=== PATIENT | female | born 1945 | race African-American/Black ===

== ENCOUNTER 2018-11-24 18:08 | Emergency (ER) | payer OTHER, MEDICAID ==
[~2018-11-24] VITALS: Ht 162.6 cm; Wt 62.1 kg
[~2018-11-24 18:08] MED LIST: ALB2T; ESOM20CA; MOME220A3
[2018-11-24] MEDS ORDERED: ONDANSETRON ODT 4 MG TAB PO ONE (19:15)
[2018-11-24] MEDS ORDERED: HYDROcodone-ACET 10/325MG TAB PO ONE (19:15)
[2018-11-24 19:36] LABS: Alanine Aminotransferase 27 U/L (13-56); Albumin 3.8 g/dL (3.4-5.0); Anion Gap 8 (5-15); Aspartate Aminotransferase 18 U/L (15-37); BUN/Creatinine Ratio 15.1; Blood Urea Nitrogen 13 mg/dL (7-18); Calcium 9.1 mg/dL (8.5-10.1); Carbon Dioxide 26 mmol/L (21-32); Chloride 104 mmol/L (98-107); GFR African American > 60 mL/min; GFR Non-African American > 60 mL/min; Glucose 91 mg/dL (74-106); Magnesium 2.4 mg/dL (1.6-2.6); Potassium 3.8 mmol/L (3.5-5.1); Sodium 138 mmol/L (136-145)
[2018-11-24 19:41] LABS: Alkaline Phosphatase 110 U/L (45-117); Bilirubin, Total 0.2 mg/dL (0.2-1.0)
[2018-11-24 19:50] LABS: Basophils # (auto) 0 uL; Basophils % (auto) 0.5 % (0.0-2.0); Eosinophils # (auto) 0.1 uL; Eosinophils % (auto) 2.4 % (0.0-7.0); Hematocrit 42.3 % (36.0-46.0); Lymphocytes # (auto) 2.1 uL; Lymphocytes % (auto) 41.1 % (10.0-50.0); Mean Corpuscular Hemoglobin 27.3 pg (28.0-32.0); Mean Corpuscular Volume 82.8 fL (80.0-100.0); Monocytes # (auto) 0.4 uL; Monocytes % (auto) 8.6 % (0.0-12.0); Neutrophils # (auto) 2.4 uL; Neutrophils % (auto) 47.4 % (37.0-80.0); Nucleated Red Blood Cells % 0.1 %; Platelet Count (auto) 276 10^3/uL (140-450); Red Blood Cells 5.11 10^6/uL (4.0-5.20); Red Cell Distribution Width 15.4 % (11.8-14.3); White Blood Cell 5.1 10^3/uL (4.4-10.8)
[2018-11-24 21:07] VITALS: BP 145/71
== END 2018-11-24 21:09 | disposition home or self-care (01) ==
LOC: ER 18:08
DX: F41.1 Generalized anxiety disorder (principal); F43.0 Acute stress reaction; I48.91 Unspecified atrial fibrillation; J44.9 Chronic obstructive pulmonary disease, unspecified; K21.9 Gastro-esophageal reflux disease without esophagitis; Z87.891 Personal history of nicotine dependence; Z88.5 Allergy status to narcotic agent; Z88.1 Allergy status to other antibiotic agents; Z79.899 Other long term (current) drug therapy
CPT/HCPCS: 36415; 71046; 72128; 80053; 83735; 83880; 84484; 85025; 93005

== ENCOUNTER 2018-12-06 21:56 | Emergency (ER) | payer MEDICAID, OTHER ==
[~2018-12-06] VITALS: Ht 162.6 cm; Wt 63.5 kg
[2018-12-07 01:57] VITALS: BP 156/71
== END 2018-12-07 04:36 | disposition left against medical advice (07) ==
LOC: ER 21:56
DX: F41.9 Anxiety disorder, unspecified (principal); Z53.21 Procedure and treatment not carried out due to patient leaving prior to being seen by health care provider
CPT/HCPCS: 93005

== ENCOUNTER 2019-02-10 14:02 | Emergency (ER) | payer OTHER, MEDICAID ==
[~2019-02-10] VITALS: Ht 162.6 cm; Wt 62.1 kg
[2019-02-10 14:17] VITALS: BP 110/64
== END 2019-02-10 15:13 | disposition home or self-care (01) ==
LOC: ER 14:04
DX: F41.9 Anxiety disorder, unspecified (principal); I48.91 Unspecified atrial fibrillation; J45.909 Unspecified asthma, uncomplicated; K21.9 Gastro-esophageal reflux disease without esophagitis

== ENCOUNTER → 2019-12-31 | Emergency (ER) | payer OTHER, MEDICAID ==
[~2019-12-31] VITALS: Ht 162.6 cm; Wt 68.0 kg
[~2019-12-31] MED LIST changes: -ALB2T; +ALB2T INH; +ALBUTEROL SULF 2.5 MG/0.5ML(0.5%) NEB SOLN NEB ONE; +DEXL60CA3 PO; +DILT60TA27 PO; -ESOM20CA; +GUAI600T23 PO; +IPRATROPIUM BROM 0.5 MG/2.5ML INH SOL NEB ONE; +LORA0.5T12 PO; +LORA5SYP23 PO; +METO25TA5 PO; -MOME220A3; +MOME220A3 INH
[2019-12-31 16:56] LABS: Basophils # (auto) 0 uL; Lymphocytes # (auto) 1.1 uL; Monocytes # (auto) 0.6 uL
[2019-12-31 16:58] LABS: Basophils % (auto) 0.3 % (0.0-2.0); Eosinophils # (auto) 0.1 uL; Eosinophils % (auto) 0.6 % (0.0-7.0); Hematocrit 42.8 % (36.0-46.0); Lymphocytes % (auto) 11.5 % (10.0-50.0); Mean Corpuscular Hemoglobin 26.6 pg (28.0-32.0); Mean Corpuscular Hgb Conc. 32.7 g/dL (32.0-36.0); Mean Corpuscular Volume 81.5 fL (80.0-100.0); Monocytes % (auto) 6.1 % (0.0-12.0); Neutrophils # (auto) 7.9 uL; Neutrophils % (auto) 81.5 % (37.0-80.0); Platelet Count (auto) 176 10^3/uL (140-450); Red Blood Cells 5.25 10^6/uL (4.0-5.20); Red Cell Distribution Width 14.5 % (11.8-14.3); White Blood Cell 9.7 10^3/uL (4.4-10.8)
[2019-12-31 17:03] LABS: INR 1.08 (0.9-1.15); Partial Thromboplastin Time 23.2 sec (23.64-32.05)
[2019-12-31 17:08] LABS: Anion Gap 6 (5-15); Blood Urea Nitrogen 20 mg/dL (7-18); Calcium 8.7 mg/dL (8.5-10.1); Carbon Dioxide 32 mmol/L (21-32); Chloride 100 mmol/L (98-107); Glucose 150 mg/dL (74-106); Magnesium 2.5 mg/dL (1.6-2.6); Potassium 4.1 mmol/L (3.5-5.1); Sodium 138 mmol/L (136-145)
[2019-12-31 17:15] LABS: Alanine Aminotransferase 54 U/L (13-56); Alkaline Phosphatase 65 U/L (45-117); Aspartate Aminotransferase 19 U/L (15-37); BUN/Creatinine Ratio 24.1; Bilirubin, Total 0.3 mg/dL (0.2-1.0); GFR African American 86 mL/min; GFR Non-African American 71 mL/min; Total Protein 6.7 g/dL (6.4-8.2)
[2019-12-31 18:00] VITALS: BP 117/72
== END | disposition home or self-care (01) ==
LOC: ER 15:46
DX: J44.1 Chronic obstructive pulmonary disease with (acute) exacerbation (principal); R00.2 Palpitations; J20.9 Acute bronchitis, unspecified; I48.91 Unspecified atrial fibrillation; K21.9 Gastro-esophageal reflux disease without esophagitis; E78.5 Hyperlipidemia, unspecified; Z90.710 Acquired absence of both cervix and uterus; Z88.5 Allergy status to narcotic agent; Z88.1 Allergy status to other antibiotic agents; Z79.899 Other long term (current) drug therapy
CPT/HCPCS: 36415; 71045; 80053; 83735; 83880; 84443; 84484; 85025; 85610; 85730; 93005; 94640; 99285; J7644

== ENCOUNTER 2020-02-08 08:27 | Emergency (ER) | payer OTHER, MEDICAID ==
[~2020-02-08] VITALS: Ht 162.6 cm; Wt 60.8 kg
[~2020-02-08 08:27] MED LIST changes: -ALBUTEROL SULF 2.5 MG/0.5ML(0.5%) NEB SOLN NEB ONE; -IPRATROPIUM BROM 0.5 MG/2.5ML INH SOL NEB ONE
[2020-02-08] MEDS ORDERED: SODIUM CHLORIDE 0.9% 500 ML IV ONE (08:45)
[2020-02-08 08:46] LABS: Basophils # (auto) 0 10 ^3/uL (0-0.2); Eosinophils # (auto) 0 10 ^3/uL (0-0.8); Hematocrit 40.3 % (36.0-46.0); Neutrophils # (auto) 2.6 10 ^3/uL (1.6-8.6); Nucleated Red Blood Cells % 0.1 %; Red Cell Distribution Width 16.5 % (11.8-14.3)
[2020-02-08 08:48] LABS: Basophils % (auto) 0.8 % (0.0-2.0); Eosinophils % (auto) 0.9 % (0.0-7.0); Lymphocytes # (auto) 1.7 10 ^3/uL (0.4-5.4); Lymphocytes % (auto) 34.3 % (10.0-50.0); Mean Corpuscular Hemoglobin 26.8 pg (28.0-32.0); Mean Corpuscular Hgb Conc. 32.4 g/dL (32.0-36.0); Mean Corpuscular Volume 82.7 fL (80.0-100.0); Monocytes # (auto) 0.6 10 ^3/uL (0-1.3); Monocytes % (auto) 12.1 % (0.0-12.0); Neutrophils % (auto) 51.9 % (37.0-80.0); Platelet Count (auto) 203 10^3/uL (140-450); Red Blood Cells 4.87 10^6/uL (4.0-5.20); White Blood Cell 5.1 10^3/uL (4.4-10.8)
[2020-02-08] MEDS ORDERED: PANTOPRAZOLE 40 MG/10 ML VIAL INJ IV ONE (09:00)
[2020-02-08 09:08] LABS: Albumin 3.4 g/dL (3.4-5.0); Anion Gap 10 (5-15); Blood Urea Nitrogen 4 mg/dL (7-18); Calcium 9.6 mg/dL (8.5-10.1); Carbon Dioxide 26 mmol/L (21-32); Chloride 103 mmol/L (98-107); Glucose 110 mg/dL (74-106); Potassium 3.7 mmol/L (3.5-5.1); Sodium 139 mmol/L (136-145)
[2020-02-08 09:14] LABS: Alanine Aminotransferase 21 U/L (13-56); Alkaline Phosphatase 82 U/L (45-117); Aspartate Aminotransferase 22 U/L (15-37); BUN/Creatinine Ratio 6.5; Bilirubin, Total 0.3 mg/dL (0.2-1.0); GFR African American 121 mL/min; GFR Non-African American 100 mL/min; Total Protein 8.1 g/dL (6.4-8.2)
[2020-02-08 10:47] VITALS: BP 110/82
== END 2020-02-08 10:48 | disposition home or self-care (01) ==
LOC: ER 08:27
DX: K29.70 Gastritis, unspecified, without bleeding (principal); J44.1 Chronic obstructive pulmonary disease with (acute) exacerbation; K21.9 Gastro-esophageal reflux disease without esophagitis; E78.5 Hyperlipidemia, unspecified; Z90.710 Acquired absence of both cervix and uterus
CPT/HCPCS: 36415; 71045; 74176; 80053; 84484; 85025; 93005; 96361; 96374; 99285; C9113; J7030

== ENCOUNTER 2020-02-23 16:11 | Inpatient (IN) | payer OTHER, MEDICAID ==
[~2020-02-23] VITALS: Ht 162.6 cm; Wt 67.5 kg
[~2020-02-23 16:11] MED LIST changes: -DEXL60CA3 PO; +DEXL60CA4 PO; -LORA0.5T12 PO; +LORA0.5T20 PO
[2020-02-23] MEDS ORDERED: ONDANSETRON HCL 4 MG/2 ML VIAL IV ONE (16:30)
[2020-02-23] MEDS ORDERED: MORPHINE SULF INJ 2 MG/ML SYRINGE 1ML IV ONE (16:30)
[2020-02-23 16:48] LABS: Eosinophils # (auto) 0.1 10 ^3/uL (0-0.8); Eosinophils % (auto) 2.6 % (0.0-7.0); Mean Corpuscular Hemoglobin 26.6 pg (28.0-32.0); Monocytes # (auto) 0.5 10 ^3/uL (0-1.3); Neutrophils # (auto) 2.3 10 ^3/uL (1.6-8.6)
[2020-02-23 16:49] LABS: Basophils # (auto) 0.1 10 ^3/uL (0-0.2); Basophils % (auto) 2.3 % (0.0-2.0); Hematocrit 36.8 % (36.0-46.0); Hemoglobin 11.7 g/dL (12.2-16.2); Lymphocytes # (auto) 1.1 10 ^3/uL (0.4-5.4); Lymphocytes % (auto) 27.2 % (10.0-50.0); Mean Corpuscular Hgb Conc. 31.8 g/dL (32.0-36.0); Mean Corpuscular Volume 83.6 fL (80.0-100.0); Monocytes % (auto) 12.4 % (0.0-12.0); Neutrophils % (auto) 55.5 % (37.0-80.0); Nucleated Red Blood Cells % 0.1 %; Platelet Count (auto) 237 10^3/uL (140-450); Red Cell Distribution Width 16.6 % (11.8-14.3); White Blood Cell 4.2 10^3/uL (4.4-10.8)
[2020-02-23 17:02] LABS: INR 1.08 (0.9-1.15); Partial Thromboplastin Time 26.3 sec (23.64-32.05)
[2020-02-23 17:05] LABS: Albumin 3.2 g/dL (3.4-5.0); Anion Gap 7 (5-15); Blood Urea Nitrogen 8 mg/dL (7-18); Calcium 9.2 mg/dL (8.5-10.1); Carbon Dioxide 28 mmol/L (21-32); Chloride 104 mmol/L (98-107); Glucose 81 mg/dL (74-106); Magnesium 1.9 mg/dL (1.6-2.6); Potassium 3.7 mmol/L (3.5-5.1); Sodium 139 mmol/L (136-145)
[2020-02-23 17:11] LABS: Alanine Aminotransferase 20 U/L (13-56); Alkaline Phosphatase 62 U/L (45-117); Aspartate Aminotransferase 16 U/L (15-37); BUN/Creatinine Ratio 12.9; Bilirubin, Total 0.3 mg/dL (0.2-1.0); GFR African American 121 mL/min; GFR Non-African American 100 mL/min; Total Protein 7.3 g/dL (6.4-8.2)
[2020-02-23] MEDS ORDERED: DOCUSATE SOD 100 MG CAP PO PRN (20:45)
[2020-02-23] MEDS ORDERED: ACETAMINOPHEN 325 MG TAB PO PRN (20:45)
[2020-02-23] MEDS ORDERED: ONDANSETRON HCL 4 MG/2 ML VIAL IV PRN (20:45)
[2020-02-23 21:44] LABS: Cholesterol 190 mg/dL (< 200); Triglycerides 97 mg/dL (< 150)
[2020-02-23] MEDS ORDERED: NITROGLYCERIN 0.4 MG SL TAB SL PRN (21:45)
[2020-02-23 21:48] LABS: HDL Cholesterol 101 mg/dL (40-59); LDL Cholesterol 63 mg/dL (< 100)
[2020-02-23] MEDS: ENOXAPARIN SOD 40 MG/0.4 ML SYRINGE SC SCH (22:03)
[2020-02-23] MEDS: ATORVASTATIN 20 MG TAB PO SCH (22:06)
[2020-02-23] MEDS: FAMOTIDINE 20 MG TAB PO SCH (22:06)
[2020-02-23] MEDS: TEMAZEPAM 15 MG CAP PO PRN (22:11)
[2020-02-23 23:00] VITALS: BP 131/55
--- NOTE | 2020-02-23 23:00 | NUR ---
Telemetry admit from ER BECKIE LEON admitted to Telemetry unit after SBAR received. Patient oriented to Vanda lorenzana RN, unit, room, bed, and unit policies regarding patient care and visiting hours. Patient now on continuous telemetry monitoring, tele box #[id number] and telemetry reading on arrival to unit is sinus rhythm reading 84. Patient placed on bedside oxygen 2L NC, weighed by bedscale and encouraged to call if they need something. All questions and concerns addressed, patient verbalized understanding.
[2020-02-23 23:23] VITALS: BP 131/55
[2020-02-24] VITALS (8 sets, daily range): BP systolic 95–131; BP diastolic 46–71
--- NOTE | 2020-02-24 | NUR ---
Skin note Patient has hypopigmentation on her sacrum area. No active wounds or openings noted at this time, when asked about the area patient stated that she used wipes that irritated the area and made her sacrum raw. Patient is alert and oriented and independent. Patient is able to move herself. Patient does not report pain or tenderness and no blanching is noted. Will continue to monitor patient.
--- NOTE | 2020-02-24 00:40 | NUR ---
Patient has asthma and COPD. Patient complained of needing a breathing treatment that she normally receives at home. Lung sounds were diminished bilaterally and patient was trying to expectorate. MD was called for a breathing treatment, given Albuterol 2.5 mg neb q8hPRN. Will put orders in and call for treatment for patient.
[2020-02-24] MEDS: ALBUTEROL SULF 2.5 MG/0.5ML(0.5%) NEB SOLN NEB PRN ×4 (01:11→19:48)
--- NOTE | 2020-02-24 02:20 | NUR ---
patient complained of burning chest pain. Patient stated the pain was an 8/10 and states that it begins to hurt when she is going to sleep. Patient has stated that she has a codeine allergy. When asked about the allergy patient stated that she gets shaky when she takes it, like as if drinking caffeine. Patient stated that she cannot remember if she has taken morphine, but that Tylenol does not help, which is her normal regimen when this pain happens. Vitals read: BP:115/45, HR: 75, O2: 100%, Resp: 16, Pain: 8/burning. Patient stated that she would like to try the morphine because nothing else works. Administered morphine slow and monitored patient. All vitals stayed the same except for B/P, after 5 minutes patients B/P was 98/50, patient felt fine and continued to monitor. 10 minutes later B/P was taken again, reading 110/51. Patient stated that the burning had begun to subside. Will continue to monitor patient. No adverse reactions noted.
[2020-02-24] MEDS: MORPHINE SULF INJ 2 MG/ML SYRINGE 1ML IV PRN ×2 (02:45→16:21)
[2020-02-24] MEDS ORDERED: PNEUMOCOCCAL VACC POLYS 25 MCG/0.5 ML VIAL IM ONE (03:30)
[2020-02-24 06:15] LABS: Basophils # (auto) 0 10 ^3/uL (0-0.2); Eosinophils # (auto) 0.1 10 ^3/uL (0-0.8); Eosinophils % (auto) 2.2 % (0.0-7.0); Hematocrit 36.5 % (36.0-46.0); Lymphocytes # (auto) 1.2 10 ^3/uL (0.4-5.4); Lymphocytes % (auto) 29.1 % (10.0-50.0); Mean Corpuscular Hemoglobin 27.5 pg (28.0-32.0); Mean Corpuscular Hgb Conc. 32.8 g/dL (32.0-36.0); Mean Corpuscular Volume 83.9 fL (80.0-100.0); Monocytes # (auto) 0.5 10 ^3/uL (0-1.3); Monocytes % (auto) 11.6 % (0.0-12.0); Neutrophils # (auto) 2.3 10 ^3/uL (1.6-8.6); Neutrophils % (auto) 56.1 % (37.0-80.0); Platelet Count (auto) 238 10^3/uL (140-450); Red Blood Cells 4.35 10^6/uL (4.0-5.20); Red Cell Distribution Width 16.7 % (11.8-14.3); White Blood Cell 4.1 10^3/uL (4.4-10.8)
[2020-02-24 06:36] LABS: Calcium 9.1 mg/dL (8.5-10.1); Chloride 104 mmol/L (98-107); Potassium 3.7 mmol/L (3.5-5.1); Sodium 140 mmol/L (136-145)
[2020-02-24 06:44] LABS: Anion Gap 6 (5-15); Blood Urea Nitrogen 7 mg/dL (7-18); Carbon Dioxide 30 mmol/L (21-32); GFR African American 155 mL/min; GFR Non-African American 128 mL/min; Glucose 78 mg/dL (74-106)
--- NOTE | 2020-02-24 07:30 | NUR ---
RECEIVED REPORT RECEIVED SHIFT REPORT FROM ANNAMARIE MCINTOSH.
--- NOTE | 2020-02-24 08:00 | NUR ---
PATIENT COMPLAINTS PATIENT COMPLAINS OF SOB, POSTURING FORWARD, AND C/O OF ANXIETY. CONTACTED HOSPITAL LIST, WAITING FOR RESPONSE. PATIENT DOES NOT HAVE PRESCRIPTION FOR ANXIETY, AND ALBUTEROL TX IS Q8H PRN. WILL CONTINUE TO MONITOR.
[2020-02-24] MEDS ORDERED: ASPirin 81 mg TAB PO SCH (10:00)
--- NOTE | 2020-02-24 10:10 | NUR ---
MEDICATION REFUSED PATIENT REFUSED LOVENOXAT 1010.
[2020-02-24] MEDS: ENOXAPARIN SOD 40 MG/0.4 ML SYRINGE SC SCH ×2 (10:26→10:30)
[2020-02-24] MEDS: FAMOTIDINE 20 MG TAB PO SCH (10:26)
[2020-02-24] MEDS: dilTIAZem 120MG ER CAP PO SCH (10:27)
[2020-02-24] MEDS: METOPROLOL SUCCINATE XL 50 MG TAB PO SCH (10:36)
[2020-02-24] MEDS ORDERED: ALBUTEROL SULF 2.5 MG/0.5ML(0.5%) NEB SOLN NEB PRN (12:45)
--- NOTE | 2020-02-24 13:10 | NUR ---
PATIENT C/O DIZZINESS WHILE BEING TREATED BY RESPIRATORY PATIENT HAD C/O DIZZINESS WHILE SITTING IN CHAIR. WILL CONTINUE TO MONITOR.
[2020-02-24] MEDS: PANTOPRAZOLE 40 MG TAB PO SCH ×2 (14:37→22:11)
--- NOTE | 2020-02-24 15:19 | NUR ---
PATIENT FAMILY COMMUNICATION SPOKE WITH PATIENTS SON, SOUMYA LEON WHO WAS FOLLOWING UP WITH HIS MOTHERS CARE. GAVE VITAL SIGNS UPDATE, AND GI CONSULT UPDATE. DISCUSSED DISCHARGE, WHICH HAS NOT BEEN ORDERED FOR TODAY 02/24/2020. WILL CONTINUE TO MONITOR.
--- NOTE | 2020-02-24 15:46 | NUR ---
Nutrition Assessment Notes Please refer to link for full assessment notes. Est Energy needs: 1993-3051 kcals (23-25 kcal/kgBW) Est Protein needs: 58-64 gms/day (1.0-1.1 gm/kgBW) Will continue to monitor and reassess prn. Addendum: 02/24/20 at [address] Amended: Links added.
--- NOTE | 2020-02-24 16:00 | NUR ---
PATIENT COMPLAINT OF CHEST PAIN PATIENT COMPLAINTS OF PAIN 08/13, BURNING CHEST PAIN. WILL TREAT WITH MORPHINE AND REASSESS. Addendum: 02/24/20 at 1714 by PATRICK GE RN RN AT 1651, PATIENT CHEST PAIN RESOLVED TO 2/10 ON 0-10/PAIN SCALE, PATIENT RESTING WELL, WITH NO OTHER S/S, WILL CONTINUE TO MONITOR.
--- NOTE | 2020-02-24 16:00 | NUR ---
Attempted PT eval. Pt refused stating she is in too much pain and has already been up today. Will attempt again tomorrow.
[2020-02-24] MEDS: LORazepam 0.5 MG TAB PO PRN (16:18)
[2020-02-24] MEDS: SUCRALFATE 1 GM/10 ML ORAL SUSP PO SCH ×2 (17:27→22:11)
--- NOTE | 2020-02-24 19:00 | NUR ---
Opening Shift Note Assumed care of patient, awake and alert. Patient complains of a burning pain in her chest along with SOB for which she gets breathing treatment q4hPRN. Will continue to monitor patient for symptoms and page as needed. Instructed on POC and to call for assist PRN, will continue to monitor for changes Q1hr and PRN. Patient in the lowest possible position with call light within reach. Patient to be sitting with HOB elevated to relieve symptoms of GERD. Will monitor and evaluate how patient is feeling post sleeping elevated. Patients is aware and compliant to sleeping with HOB elevated.
--- NOTE | 2020-02-24 19:45 | NUR ---
Patient complains of SOB. Respiratory called and at bedside giving PRN breathing treatment.
[2020-02-24] MEDS ORDERED: FAMOTIDINE 20 MG TAB PO SCH (22:00)
[2020-02-24] MEDS: ATORVASTATIN 20 MG TAB PO SCH (22:11)
[2020-02-24] MEDS: TEMAZEPAM 15 MG CAP PO PRN (22:12)
--- NOTE | 2020-02-24 23:45 | NUR ---
Patient complained of SOB around 2330, respiratory was called but patient was asleep. No treatment given, will monitor patient and reevaluate the need for a breathing treatment when she wakes up.
[2020-02-25] MEDS: ALBUTEROL SULF 2.5 MG/0.5ML(0.5%) NEB SOLN NEB PRN ×3 (01:37→14:49)
--- NOTE | 2020-02-25 01:40 | NUR ---
Patient complains of SOB. Respiratory called and at bedside.
[2020-02-25] MEDS: MORPHINE SULF INJ 2 MG/ML SYRINGE 1ML IV PRN (02:57)
--- NOTE | 2020-02-25 02:58 | NUR ---
Patient C/O of burning in her chest with a pain of 10/10. Morphine given for pain, will reassess.
[2020-02-25 05:00] VITALS: BP 96/52
[2020-02-25] MEDS: SUCRALFATE 1 GM/10 ML ORAL SUSP PO SCH ×3 (06:29→17:00)
[2020-02-25] MEDS: LORazepam 0.5 MG TAB PO PRN (07:03)
[2020-02-25 08:00] VITALS: BP 101/50
--- NOTE | 2020-02-25 08:07 | NUR ---
FAXED MEDICAL RECORD RELEASE MEDICAL RELEASE FORM FAXED TO [facility] FOR EGD RESULTS
--- NOTE | 2020-02-25 08:09 | NUR ---
Opening Shift Note Assumed care of patient, awake and alert. Instructed on POC and to call for assist PRN, will continue to monitor for changes Q1hr and PRN. Patient in the lowest possible position with call light within reach. Patient to be sitting with HOB elevated to relieve symptoms of GERD. Will monitor and evaluate how patient is feeling post sleeping elevated. Patients is aware and compliant to sleeping with HOB elevated.
[2020-02-25] MEDS: dilTIAZem 120MG ER CAP PO SCH ×2 (09:14→11:02)
[2020-02-25] MEDS: PANTOPRAZOLE 40 MG TAB PO SCH (09:15)
[2020-02-25] MEDS: METOPROLOL SUCCINATE XL 50 MG TAB PO SCH (09:15)
[2020-02-25] MEDS ORDERED: ASPirin 81 mg TAB PO SCH (10:00)
--- NOTE | 2020-02-25 11:02 | NUR ---
PT HEART RATE 152 PT PENDING STRESS TEST, FELIX VÁZQUEZ ASKED POTTERY STRIPER ALEXSANDRA SIMMONS IF IT IS OKAY TO PROCEED WITH ADMINISTRATION OF CARDIZEM. ACCORDING TO POTTERY STRIPER THIS RN IS OKAY TO GIVE CARDIZEM DUE TO HEART RATE.
--- NOTE | 2020-02-25 11:28 | NUR ---
PT REFUSING STRESS TEST PT STATES " LOOK, I ONLY HAVE HALF OF MY HEART WORKING AT THIS MOMENT SO I DO NOT WANT TO DO 6THE TEST BECAUSE MY HEART COULD STOP" PT EDUCATED ABOUT IMPORTANCE OF STRESS TEST, PT VERBALIZED UNDERSTANDING AND STATES "I WOULD JUST LIKE TO WAIT FOR DOCTOR AVERY".
--- NOTE | 2020-02-25 11:41 | NUR ---
SPOKE WITH MD LINARES RE: PT WANTING DIRECT CHILL CASTER TO BE HER REGULAR WHICH IS ASHTIANI. PER IT IS OKAY TO CHANGE SERVICE
--- NOTE | 2020-02-25 11:42 | NUR ---
INTERNAL REVIEW AND AUDIT COMPLIANCE CHANGED TO MD VARELA PER PATIENT SHE HAS SEEN HIM FOR 15 YEARS
--- NOTE | 2020-02-25 11:50 | NUR ---
MD VARELA PAGED RE: HR 135-162 PT ALREADY RECEIVED 125 MG OF CARDIZEM PO. AWAITING CALL BACK
[2020-02-25 12:00] VITALS: BP 116/65
--- NOTE | 2020-02-25 12:28 | NUR ---
EKG PERFORMED X2 READING IS SINUS TACHYCARDIA WITH HR OF 111
[2020-02-25] MEDS ORDERED: MORPHINE SULF INJ 2 MG/ML SYRINGE 1ML IV PRN (15:30)
--- NOTE | 2020-02-25 16:00 | NUR ---
AT BEDSIDE: DR. LAWSON AT BEDSIDE TO SEE PATIENT. ALL QUESTIONS ADDRESSED, PER MD PATIENT MAY BE DISCHARGED NO NEED FOR HEART CATH OR STRESS TEST. FOLLOW UP IN HIS OFFICE IN ONE WEEK.
--- NOTE | 2020-02-25 16:10 | NUR ---
DISCHARGE ORDER: SPOKE WITH DR. LINARES TO INFORM HER THAT PER DR. VARELA PATIENT CAN BE DISCHARGED, PER DR. LINARES OK TO DISCHARGE, CHECK WITH DR. BLANKENSHIP IF ANY NEW PRESCRIPTIONS ARE ORDERED PRIOR TO DISCHARGE.
--- NOTE | 2020-02-25 16:20 | NUR ---
DR. BLANKENSHIP: SPOKE WITH DR. BLANKENSHIP OBTAINED ORDERS TO CALL IN PRESCRIPTION FOR PEPCID 40MG PO QHS, ORDERS REPEATED BACK AND VERIFIED. NEW PRESCRIPTION CALLED INTO PATIENTS PREFERRED PHARMACY, [facility]. PATIENT AWARE OF NEW PRESCRIPTIONS.
[2020-02-25 17:00] VITALS: BP 102/58
[2020-02-25 17:16] VITALS: BP 101/69
--- NOTE | 2020-02-25 17:49 | NUR ---
PT REFUSING PNEUMOCOCCAL VACCINE AT THIS TIME PT STATES "YOU KNOW WHAT, I NEED TO TALK TO MY DOCTOR BEFORE I GET THAT" PT EDUCATED ON THE BENEFITS OF REVEIVING THE VACCINE, PT VERBALIZED UNDERSTANDING AND STILL REFUSES THE VACCINE.
--- NOTE | 2020-02-25 19:34 | NUR ---
Discharge instructions given as ordered. Encourage to follow up with PMD as instructed. All questions and concerns addressed. Patient verbalized understanding. Medication reconciliation form completed and copy given to patient. . IV removed with catheter intact, pressure dressing applied. Telemetry unit returned to ICU. Patient taken to vehicle via wheelchair with all personal belongings, accompanied by staff and family member. No distress noted at time of departure.
== END 2020-02-25 19:25 | disposition home or self-care (01) | DRG 392 ==
LOC: ER 16:11 → EDBD 16:11 → TELE 16:12 → TELE-WESTW 23:17
PROVIDERS: ADMIT Nurse Practitioner; ATTEND Internal Medicine
DX: K21.9 Gastro-esophageal reflux disease without esophagitis (principal); E44.1 Mild protein-calorie malnutrition; R07.89 Other chest pain; E66.9 Obesity, unspecified; I10 Essential (primary) hypertension; J44.9 Chronic obstructive pulmonary disease, unspecified; M54.9 Dorsalgia, unspecified; E78.5 Hyperlipidemia, unspecified; F41.9 Anxiety disorder, unspecified; I48.0 Paroxysmal atrial fibrillation; Z87.891 Personal history of nicotine dependence; Z80.41 Family history of malignant neoplasm of ovary; Z85.43 Personal history of malignant neoplasm of ovary; Z90.710 Acquired absence of both cervix and uterus; Z88.5 Allergy status to narcotic agent; Z68.22 Body mass index [BMI] 22.0-22.9, adult; J45.909 Unspecified asthma, uncomplicated
CPT/HCPCS: 36415; 71045; 80048; 80053; 80061; 83735; 84484; 85025; 85610; 85730; 93005; 93306; 94640; 97163; G0378; J2405

== ENCOUNTER → 2020-08-24 | Outpatient (CLI) | payer MEDICARE, MEDICAID | END | disposition home or self-care (01) | LOC: RT 08:44 | PROVIDERS: ATTEND Internal Medicine Pulmonary Disease | DX: J44.9 Chronic obstructive pulmonary disease, unspecified (principal) | CPT/HCPCS: 94060; 94618; 94727; 94729 ==

== ENCOUNTER 2023-07-13 04:17 | Emergency (ER) | payer OTHER, MEDICAID ==
[~2023-07-13] VITALS: Ht 162.6 cm; Wt 53.6 kg
[~2023-07-13 04:17] MED LIST changes: -ALB2T INH; +ALBU2TAB47 INH; +DILT60TA PO; -DILT60TA27 PO; +LORA-1121 PO; -LORA0.5T20 PO
[2023-07-13 04:49] VITALS: BP 106/64; RESP 20; O2SAT 99
[2023-07-13 05:18] LABS: Basophils # (auto) 0 10 ^3/uL (0-0.2); Basophils % (auto) 0.7 % (0.0-2.0); Eosinophils # (auto) 0.1 10 ^3/uL (0-0.8); Eosinophils % (auto) 1.5 % (0.0-7.0); Hematocrit 36.5 % (36.0-46.0); Hemoglobin 11.8 g/dL (12.2-16.2); Lymphocytes # (auto) 1.6 10 ^3/uL (0.4-5.4); Lymphocytes % (auto) 32.9 % (10.0-50.0); Mean Corpuscular Hemoglobin 27.5 pg (28.0-32.0); Mean Corpuscular Hgb Conc. 32.2 g/dL (32.0-36.0); Mean Corpuscular Volume 85.4 fL (80.0-100.0); Monocytes # (auto) 0.5 10 ^3/uL (0-1.3); Monocytes % (auto) 10.6 % (0.0-12.0); Neutrophils # (auto) 2.7 10 ^3/uL (1.6-8.6); Neutrophils % (auto) 54.3 % (37.0-80.0); Nucleated Red Blood Cells % 0.1 %; Red Blood Cells 4.28 10^6/uL (4.0-5.20); White Blood Cell 4.9 10^3/uL (4.4-10.8)
[2023-07-13 05:34] LABS: INR 1.03 (0.9-1.15); Partial Thromboplastin Time 27.6 SEC (24.5-34.5); Prothrombin Time 10.8 sec (9.3-11.8)
[2023-07-13 05:39] LABS: Alanine Aminotransferase 20 U/L (7-40); Albumin 4.5 g/dL (3.2-4.8); Alkaline Phosphatase 85 U/L (46-116); Anion Gap 5.8 (5-15); Aspartate Aminotransferase 19 U/L (13-40); BUN/Creatinine Ratio 13.4 (10.0-20.0); Bilirubin, Total 0.3 mg/dL (0.2-1.0); Blood Urea Nitrogen 13 mg/dL (9-23); Carbon Dioxide 30.2 mmol/L (20-30); Chloride 102 mmol/L (98-107); Glucose 116 mg/dL (74-106); Potassium 4.2 mmol/L (3.5-5.1); Sodium 138 mmol/L (136-145)
[2023-07-13 07:48] VITALS: PULSE 80
== END 2023-07-13 08:42 | disposition left against medical advice (07) ==
LOC: ER 04:17
DX: R06.02 Shortness of breath (principal); R07.89 Other chest pain; I48.91 Unspecified atrial fibrillation; E78.5 Hyperlipidemia, unspecified; J44.9 Chronic obstructive pulmonary disease, unspecified; K21.9 Gastro-esophageal reflux disease without esophagitis; Z90.710 Acquired absence of both cervix and uterus; Z87.891 Personal history of nicotine dependence
CPT/HCPCS: 36415; 36600; 71045; 80053; 82805; 83880; 84484; 85025; 85379; 85610; 85730; 93005